=== PATIENT | female | born 1985 | race African-American/Black ===

== ENCOUNTER 2020-02-18 11:33 | Emergency (ER) | payer BC ==
[~2020-02-18] VITALS: Ht 157.5 cm; Wt 68.0 kg
[~2020-02-18 11:33] MED LIST: NORCO 7.5-3251 EACH PO; PREDNISONE 10 M10 M1 PO
[2020-02-18 13:11] LABS: CALCIUM 9.3 mg/dL (8.5-10.1); CREATININE 0.9 mg/dL (0.6-1.0); POTASSIUM 3.4 mmol/L (3.5-5.1)
[2020-02-18 13:13] LABS: ABSOLUTE NEUTROPHILS 4.5 thou/uL (1.4-8.2); BASOPHILS 0.8 % (0.0-2.0); HEMATOCRIT 37.8 % (37.0-47.0); HEMOGLOBIN 12.7 gm/dL (12.0-15.0); LYMPHOCYTES 8.5 % (24.0-44.0); MCH 31.8 pg (26.0-34.0); MCHC 33.7 g/dL (28.0-37.0); MCV 94.5 fL (80.0-100.0); MONOCYTES 2.7 % (1.0-8.0); PLATELET COUNT 204 thou/uL (150-400); RDW 13.2 % (10.5-14.5); WBC 5.1 thou/uL (4.0-11.0)
[2020-02-18 13:17] LABS: ALBUMIN 3.8 g/dL (3.4-5.0); TOTAL BILIRUBIN 0.5 mg/dL (0.2-1.0); TOTAL PROTEIN 8.5 g/dL (6.4-8.2)
[2020-02-18 14:02] LABS: URINE BILIRUBIN NEGATIVE (Negative); URINE BLOOD NEGATIVE (Negative); URINE CLARITY CLEAR; URINE COLOR YELLOW; URINE GLUCOSE-RANDOM* NEGATIVE (Negative); URINE KETONES NEGATIVE (Negative); URINE LEUKOCYTES-REFLEX NEGATIVE (Negative); URINE NITRITE-REFLEX NEGATIVE (Negative); URINE PROTEIN (DIPSTICK) 1+ (Negative); URINE SPECIFIC GRAVITY >= 1.030 (1.005-1.035)
[2020-02-18 14:10] LABS: SQUAMOUS 0-3 Few /LPF (0-3)
[2020-02-18 14:11] LABS: BACTERIA-REFLEX 1-9 Few /HPF (None Seen); CASTS None Seen /LPF (None Seen); CRYSTALS None Seen /LPF (None Seen); MUCUS 4-6 Moderate strn/LPF (None Seen); URINE RBC None Seen /HPF (0-2); URINE WBC-REFLEX 0-5 Rare /HPF (0-5)
[2020-02-18 14:13] LABS: AMP/METHAMP Negative (Negative); BARBITURATES POSITIVE (Negative); BENZODIAZEPINES Negative (Negative); COCAINE Negative (Negative); METHADONE Negative (Negative); OPIATES Negative (Negative); PCP Negative (Negative)
[2020-02-18] MEDS ORDERED: PHENERGAN 25 MG25 M1 PO (17:23)
[2020-02-18] MEDS ORDERED: CIPRO500 M1 PO (17:23)
[2020-02-18] MEDS ORDERED: FLAGYL500 M1 PO (17:23)
[2020-02-18 18:07] VITALS: BP 146/86
== END 2020-02-18 18:17 | disposition home or self-care (01) ==
LOC: ER 11:33
PROVIDERS: Physician Assistant
DX: K52.9 Noninfective gastroenteritis and colitis, unspecified (principal); Z79.899 Other long term (current) drug therapy

== ENCOUNTER 2020-02-20 17:13 | Emergency (ER) | payer BC ==
[~2020-02-20] VITALS: Ht 162.6 cm; Wt 59.9 kg
[~2020-02-20 17:13] MED LIST changes: +CIPRO500 M1 PO; +FLAGYL500 M1 PO; +PHENERGAN 25 MG25 M1 PO
[2020-02-20 20:10] LABS: ANION GAP 5 mmol/L (7-16); BUN 9 mg/dL (7-18); CALCIUM 9.2 mg/dL (8.5-10.1); CHLORIDE 97 mmol/L (98-107); CO2 30 mmol/L (21-32); CREATININE 0.8 mg/dL (0.6-1.0); GLUCOSE 87 mg/dL (74-106); HEMATOCRIT 36.6 % (37.0-47.0); HEMOGLOBIN 12.8 gm/dL (12.0-15.0); MCH 32.4 pg (26.0-34.0); MCV 92.5 fL (80.0-100.0); RBC 3.95 mil/uL (4.20-5.00); RDW 13.4 % (10.5-14.5); SODIUM 132 mmol/L (136-145); WBC 5.5 thou/uL (4.0-11.0)
[2020-02-20 20:14] LABS: POTASSIUM 3.6 mmol/L (3.5-5.1)
[2020-02-20 20:21] LABS: ALBUMIN 3.6 g/dL (3.4-5.0); DIRECT BILIRUBIN 0.1 mg/dL (<0.1-0.2); LIPASE 93 U/L (73-393); SGOT 33 U/L (15-37); SGPT 60 U/L (30-65); TOTAL BILIRUBIN 0.6 mg/dL (0.2-1.0); TOTAL PROTEIN 8.3 g/dL (6.4-8.2); TROPONIN-I <0.06 ng/mL (<0.06)
[2020-02-20 20:22] LABS: URINE BILIRUBIN NEGATIVE (Negative); URINE BLOOD TRACE (Negative); URINE CLARITY SL CLOUDY; URINE COLOR YELLOW; URINE GLUCOSE-RANDOM* NEGATIVE (Negative); URINE KETONES 1+ (Negative); URINE LEUKOCYTES-REFLEX NEGATIVE (Negative); URINE NITRITE-REFLEX NEGATIVE (Negative); URINE PROTEIN (DIPSTICK) TRACE (Negative); URINE SPECIFIC GRAVITY 1.015 (1.005-1.035)
[2020-02-20 20:28] LABS: AMP/METHAMP Negative (Negative); BARBITURATES POSITIVE (Negative); BENZODIAZEPINES Negative (Negative); COCAINE Negative (Negative); METHADONE Negative (Negative); OPIATES Negative (Negative); PCP Negative (Negative)
[2020-02-20 20:30] LABS: MUCUS 0-3 Light strn/LPF (None Seen)
[2020-02-20 20:31] LABS: AMORPHOUS PHOSPHATES Moderate /LPF (None Seen); CASTS None Seen /LPF (None Seen); SQUAMOUS 0-3 Few /LPF (0-3)
[2020-02-20 20:32] LABS: BACTERIA-REFLEX 1-9 Few /HPF (None Seen); CRYSTALS None Seen /LPF (None Seen); URINE RBC 0-2 Rare /HPF (0-2); URINE WBC-REFLEX 0-5 Rare /HPF (0-5)
[2020-02-20] MEDS ORDERED: PANTOPRAZOLE SO40 M1 PO (23:40)
[2020-02-20] MEDS ORDERED: ZOFRAN ODT4 MG PO (23:40)
[2020-02-21 00:16] VITALS: BP 160/91
--- NOTE | 2020-02-21 10:56 | EKG ---
[facility] [place] [address] ELECTROCARDIOGRAM REPORT Name: ELVIS THAKKAR Room #: DEP [facility]#: [id number] Admission: 02/20/20 Attend Phys: Discharge: 02/21/20 Date of : 87 Report #: [id number] THIS REPORT FOR: cc: LUZ MARIA - No family physician/PCP LUZ MARIA - No family physician/PCP Shreyas Robert MD [facility] THIS REPORT FOR: //name// [facility] ED Test Date: 2020-02-20 Test Time: 19:19:44 Pat Name: ELVIS THAKKAR Department: Room: Gender: F [employer]: : 1985 Requested By: Shiv Osullivan Order Number: [id number] MD: Shreyas Robert Measurements Intervals [place] Rate: 63 P: 17 [place]: 155 QRS: -12 QRSD: 94 T: 23 QT: 400 QTc: 410 Interpretive Statements Sinus rhythm Nonspecific T abnormalities, anterior leads No previous ECG available for comparison Electronically Signed On 02-21-2020 10:56:22 CDT by Shreyas Robert [email or web address] <ELECTRONICALLY SIGNED> By: Shreyas Robert MD, FAC 02/21/20 1056 18 18 Shreyas Robert MD, [facility] /EPI
== END 2020-02-21 00:17 | disposition home or self-care (01) ==
LOC: ER 17:13
PROVIDERS: Emergency Medicine
DX: R10.30 Lower abdominal pain, unspecified (principal); R11.2 Nausea with vomiting, unspecified; R41.82 Altered mental status, unspecified; M32.9 Systemic lupus erythematosus, unspecified